=== PATIENT | male | born 1995 | race Caucasian/White ===

== ENCOUNTER 2021-04-18 10:38 | Outpatient (CLI) | payer MEDICAID, SELFPAY ==
--- NOTE | 2021-04-18 | ECG_ITS ---
Measurements Intervals [place] Rate: 58 P: 67 SC: 154 QRS: 77 QRSD: 93 T: 61 QT: 412 QTc: 405 Interpretive Statements SINUS BRADYCARDIA ST ELEVATION IN DIFFUSE LEADS, PROBABLY EARLY REPOLARIZATION BORDERLINE ECG Electronically Signed On 04-18-2021 11:54:44 ICE CREAM DISPENSER by Bartolome Ferguson D.O.
[2021-04-18 11:07] LABS: Basophils Percent Auto 0.4 % (0.2-1.2); Eosinophils Absolute Auto 0.1 K/mm3 (0-0.3); Eosinophils Percent Auto 1.3 % (0-4.4); Hematocrit 41.8 % (42.0-52.0); Immature Granulocyte Absolute 0.01 K/mm3 (0.00-0.031); Immature Granulocyte Percent A 0.2 % (0-0.5); Lymphocytes Absolute Auto 1.84 K/mm3 (0.9-3.2); Lymphocytes Percent Auto 33.2 % (18.3-44.2); Mean Corpuscular HGB Conc 33.5 g/dl (32-36); Mean Corpuscular Hemoglobin 28.6 pg (26-34); Mean Corpuscular Volume 85.3 fl (80-100); Mean Platelet Volume 8.6 fl (7.4-10.4); Monocytes Absolute Auto 0.5 K/mm3 (0.1-0.6); Monocytes Percent Auto 8.6 % (2.6-8.5); Neutrophils Absolute Auto 3.1 K/mm3 (1.3-6.7); Neutrophils Percent Auto 56.3 % (45.5-73.1); Platelet Count Result 208 k/mm3 (150-375); Red Cell Distribution Width 12.5 % (11.5-14.5); White Blood Count 5.6 K/mm3 (4.5-10.0)
[2021-04-18 11:16] LABS: Alanine Aminotransferase 23 U/L (4-50); Albumin Level 4.5 g/dL (3.5-5.1); Alkaline Phosphatase 73 U/L (38-126); Anion Gap 9 mmol/L (8-16); Aspartate Amino Transferase 38 U/L (17-59); Bilirubin,Total 0.7 mg/dL (0.2-1.3); Blood Urea Nitrogen 15 mg/dL (9-20); Calcium 9.3 mg/dL (8.4-10.2); Carbon Dioxide 30 mmol/L (22-30); Chloride 102 mmol/L (98-107); Cholesterol 143 mg/dL (0-200); Estimated Glomerular Filt Rate > 60; Glucose 76 mg/dL (65-110); HDL Direct 42 mg/dL; Potassium 4.2 mmol/L (3.4-5.0); Sodium 141 mmol/L (137-145); Triglycerides 79 mg/dL (<150)
[2021-04-18 11:26] LABS: LDL Cholesterol Direct 68 mg/dL
[2021-04-18 11:30] LABS: Hemoglobin A1C 5.3 % (<5.7)
[2021-04-18 12:03] LABS: Free T4 Free Thyroxine 0.93 ng/mL (0.78-2.19)
[2021-04-18 12:28] LABS: T4 Thyroxine 7.67 ug/dL (5.53-11.0)
== END 2021-04-18 10:39 | disposition home or self-care (01) ==
DX: Z79.899 Other long term (current) drug therapy (principal); R94.31 Abnormal electrocardiogram [ECG] [EKG]
CPT/HCPCS: 36415; 80053; 80061; 83036; 84436; 84439; 84443; 84480; 85025; 93005